=== PATIENT | male | born 1940 | race African-American/Black ===

== ENCOUNTER 2017-06-03 14:06 | Inpatient (IN) | payer OTHER ==
--- NOTE | 2017-06-03 14:26 | PDOC ---
History of Present Illness - General History Source: Patient Exam Limitations: No Limitations - History of Present Illness Initial Comments: 06/03/17 15:10 The patient is a 76 year old male, with significant past medical history of silicosis, HTN, and HLD, who presents to the emergency room complaining of 1 week of SOB, chest discomfort, bilateral leg swelling, and abdominal bloating. He describes the chest discomfort as midsternal and nonradiating. He notes that he saw his PCP, Dr. Remy Schulz, on Monday 5 days ago and was prescribed 40mg of Lasix per day. He states that he has been compliant with the lasix, but has not had any relief of the SOB, chest discomfort or leg swelling. He does not that he has been urinating more often since starting the lasix. He reports a productive cough with brown sputum, but states that this is normal for him given his history of silicosis. He notes that he sleeps on a recliner at home because he cannot lay flat. Denies palpitations. Denies any numbness and tingling of the extremities. Denies fever, chills, nausea, vomiting. Denies abdominal pain. PCP: Dr. Remy Schulz <Zainab Edwards - Last Filed: 06/03/17 16:05> <Kanika Marti - Last Filed: 06/03/17 16:14> - General Chief Complaint: Chest Pain Stated Complaint: CHEST PAIN Time Seen by Provider: 06/03/17 14:26 Past History <Zainab Edwards - Last Filed: 06/03/17 16:05> - Past Medical History HTN: Yes Hypercholesterolemia: Yes - Psycho/Social/Smoking Cessation Hx Suicidal Ideation: No Smoking History: Never smoked Information on smoking cessation initiated: No <Kanika Marti - Last Filed: 06/03/17 16:14> - Past Medical History Allergies/Adverse Reactions: Allergies Allergy/AdvReac Type Severity Reaction Status Date / Time No Known Allergies Allergy Verified 06/03/17 14:10 Home Medications: Ambulatory Orders Alfuzosin HCl [Uroxatral] 10 mg PO DAILY 06/03/17 Amlodipine Besylate 5 mg PO DAILY 06/03/17 Aspirin [ASA -] 81 mg PO DAILY 06/03/17 Ezetimibe 10 mg PO DAILY 06/03/17 Losartan Potassium 100 mg PO DAILY 06/03/17 Meloxicam [Mobic] 15 mg PO DAILY 06/03/17 Solifenacin Succinate [Vesicare -] 5 mg PO DAILY 06/03/17 Review of Systems - Review of Systems Able to Perform ROS?: Yes Comments:: 06/03/17 15:10 GENERAL/CONSTITUTIONAL: No fever or chills. No weakness. HEAD, EYES, EARS, NOSE AND THROAT: No change in vision. No ear pain or discharge. No sore throat. GASTROINTESTINAL: +abdominal bloating. No nausea, vomiting, diarrhea or constipation. GENITOURINARY: +frequent urination. No dysuria, or change in urination. CARDIOVASCULAR: +chest discomfort, SOB. RESPIRATORY: No cough, wheezing, or hemoptysis. MUSCULOSKELETAL: +Lower extremity swelling bilaterally. No joint or muscle swelling or pain. No neck or back pain. SKIN: No rash NEUROLOGIC: No headache, vertigo, loss of consciousness, or change in strength/ sensation. ENDOCRINE: No increased thirst. No abnormal weight change. HEMATOLOGIC/LYMPHATIC: No anemia, easy bleeding, or history of blood clots. ALLERGIC/IMMUNOLOGIC: No hives or skin allergy. <JerryZainab - Last Filed: 06/03/17 16:05> *Physical Exam - Vital Signs Last Vital Signs Temp Pulse Resp BP Pulse Ox 97.5 F L 124 H 18 140/96 100 06/03/17 14:07 06/03/17 14:07 06/03/17 14:07 06/03/17 14:07 06/03/17 14:20 - Physical Exam Comments: 06/03/17 15:10 Constitutional: Awake, alert, oriented. No acute distress. Head: Normocephalic. Atraumatic Eyes: PERRL. EOMI. Conjunctivae are not pale. ENT: Mucous membranes are moist and intact. Posterior pharynx without exudates or erythema. Uvula midline. Neck: Supple. Full ROM. No lymphadenopathy. Cardiovascular: +tachycardic. Regular rhythm. S1, S2 regular. Distal pulses are 2+ and symmetric. Pulmonary/Chest: Diminished lung sounds at the bases. No evidence of respiratory distress. Clear to auscultation bilaterally No wheezing, rales or rhonchi. Abdominal: Soft and non-distended. There is no tenderness. No rebound, guarding or rigidity. No organomegaly. No palpable masses. Good bowel sounds. Back: No CVA tenderness. Musculoskeletal: 2+ pitting edema bilaterally. No cyanosis. No clubbing. Full range of motion in all extremities. Nocalf tenderness. Radial/pedal pulses are intact and 2+ bilaterally Skin: Skin is warm and dry. No petechiae. No purpura. Neurological: Alert and oriented to person, place, and time. Cranial nerves II -XII are grossly intact. Normal speech. Strength is grossly symmetric. No sensory deficits. Psychiatric: Good eye contact. Normal interaction, affect and behavior. <Zainab Edwards - Last Filed: 06/03/17 16:05> - Vital Signs Last Vital Signs Temp Pulse Resp BP Pulse Ox 97.5 F L 124 H 18 140/96 99 06/03/17 14:07 06/03/17 14:07 06/03/17 14:07 06/03/17 14:07 06/03/17 14:07 <Kanika Marti - Last Filed: 06/03/17 16:14> Heart Score/ECG Review - History History: Highly suspicious - Electrocardiogram EKG: Non specific repolarization disturbance - Age Age: >/= 65 - Risk Factors Risk Factors Heart Score: Yes Hx Hypertension Based on the list above the patient has:: 1-2 risk factors - Troponin Troponin: 1-3x normal limit - Score Heart Score - Total: 7 - ECG Intrepretation Comment:: 06/03/17 15:33 aflutter at 123, q waves anteriorly, t wave flattening laterally, abnl ekg 06/03/17 16:14 repeat ekg: aflutter at 91, poor r wave progression, no acute st/t wave findings <Kanika Marti - Last Filed: 06/03/17 16:14> ED Treatment Course - LABORATORY CBC & Chemistry Diagram: 06/03/17 14:40 06/03/17 14:40 - ADDITIONAL ORDERS Additional order review: 06/03/17 14:40 RBC 5.53 MCV 78.4 L MCHC 31.6 L RDW 13.9 MPV 9.1 Neutrophils % 62.7 Lymphocytes % 17.6 Monocytes % 17.5 H Eosinophils % 1.5 Basophils % 0.7 <Zainab Edwards - Last Filed: 06/03/17 16:05> - LABORATORY CBC & Chemistry Diagram: 06/03/17 14:40 06/03/17 14:40 <Kanika Marti - Last Filed: 06/03/17 16:14> Medical Decision Making - Medical Decision Making 06/03/17 15:30 Dr. Martins was paged via paging service at 3:30pm. awaiting call back. 06/03/17 15:52 Dr. Martins called back and spoke with Dr. Marti regarding the patient's care 06/03/17 16:03 Dr. Patel was paged via paging service at 3:55pm. Dr. Cadet is owner oral surgeon awaiting call back. Dr. Cadet called back at 4:05pm and agreed to consult. 06/03/17 16:05 <Zainab Edwards - Last Filed: 06/03/17 16:05> - Critical Care Time Total Critical Care Time (minutes): 30 Critical Care Statement: The care of this patient involved high complexity decision making to prevent further life threatening deterioration of the patient 's condition and/or to evaluate & treat vital organ system(s) failure or risk of failure. - Medical Decision Making 06/03/17 15:35 a/p: pt with new onset aflutter. intermittent cp/sob -concern for chf, le edema, not improving with outpt lasix -will do rate control -lasix for fluid overload -labs -asa -cxr -ekg -trop/bnp -admission 06/03/17 15:36 pt with mildly elevated trop. hr now 86-90 after cardizem dose 06/03/17 16:13 case discussed with cardio - will eval pt. recommends lovenox therapy. will start in the ED. recommends BID dosing <Kanika Marti - Last Filed: 06/03/17 16:14> *DC/Admit/Observation/Transfer - Attestations Scribe Attestion: 06/03/17 15:10 Documentation prepared by LESLIE Martin, acting as medical assistant internal medicine for Kanika Marti DO. <Zainab Edwards - Last Filed: 06/03/17 16:05> - Discharge Dispostion Admit: Yes - Attestations Physician Attestion: 06/03/17 15:54 I, Dr. Kanika Marti, DO, attest that this document has been prepared under my direction and personally reviewed by me in its entirety. I further attest, that it accurately reflects all work, treatment, procedures and medical decision -making performed by me. <Kanika Marti - Last Filed: 06/03/17 16:14> Diagnosis at time of Disposition: Atrial flutter, Elevated troponin - Discharge Dispostion Condition at time of disposition: Guarded - Referrals Referrals: Remy Schulz MD [Primary Care Provider] -
[2017-06-03 14:55] LABS: BASOPHIL 0.7 % (0-2.0); EOSINOPHIL 1.5 % (0-4.5); MCH 24.8 pg (25.7-33.7); MCHC 31.6 g/dl (32.0-35.9); MEAN CELL VOLUME 78.4 fl (80-96); MEAN PLT VOLUME 9.1 fl (7.5-11.1); NEUTROPHILS 62.7 % (42.8-82.8); PLATELET COUNT 159 K/MM3 (134-434); RDW 13.9 % (11.9-15.9); WHITE BLOOD COUNT 6.4 K/mm3 (4.0-10.0)
[2017-06-03] MEDS ORDERED: dilTIAZem HCL 50 MG/10 ML - 10 ML VIAL IVPUSH ONE (14:58)
[2017-06-03] MEDS ORDERED: dilTIAZem HCL 125 MG/25 ML - 25 ML VIAL ONE (15:07)
[2017-06-03 15:12] LABS: ALBUMIN 3.5 g/dl (3.4-5.0); ANION GAP 8 (8-16); BILIRUBIN,TOTAL 1.5 mg/dL (0.2-1.0); CALCIUM 8.9 mg/dL (8.5-10.1); CO2 24 mmol/L (21-32); CREATININE 1.2 mg/dL (0.7-1.3); GLUCOSE,RANDOM 98 mg/dL (74-106); MAGNESIUM 2.3 mg/dL (1.8-2.4); SGOT/AST 96 U/L (15-37); SGPT/ALT 84 U/L (12-78)
[2017-06-03 15:15] LABS: ALK PHOS 80 U/L (45-117); CPK 636 IU/L (39-308); TROPONIN I 0.07 ng/ml (0.00-0.05)
[2017-06-03] MEDS ORDERED: FUROSEMIDE 40 MG/4 ML INJECTABLE VIAL ONE (15:24)
[2017-06-03] MEDS ORDERED: ASPIRIN 81 MG CHEWABLE TABLETS PO ONE (15:25)
[2017-06-03] MEDS ORDERED: FUROSEMIDE 40 MG/4 ML INJECTABLE VIAL IVPUSH ONE (15:25)
[2017-06-03] MEDS ORDERED: ASPIRIN 81 MG CHEWABLE TABLETS ONE (15:28)
[2017-06-03 15:32] LABS: INR 1.58 (0.82-1.09); PROTHROMBIN TIME (PATIENT) 17.5 SEC (9.98-11.88)
[2017-06-03 15:35] LABS: ACTIVATED PTT 31.7 SECONDS (26.9-34.4)
[2017-06-03] MEDS ORDERED: dilTIAZem HCL 30 MG TABLET (FP) ONE (16:00)
[2017-06-03] MEDS ORDERED: dilTIAZem HCL 30 MG TABLET (FP) PO ONE (16:02)
[2017-06-03] MEDS ORDERED: ENOXAPARIN NA (PORCINE) 40 MG/0.4 ML DISP.SYRIN SQ ONE (16:03)
--- NOTE | 2017-06-03 16:03 | CON.CARD ---
Consult Consult Specialty:: Cardiology for dr. Patel Reason for Consultation:: af chf - History of Present Illness History of Present Illness: The patient is a 76 year old male, with significant past medical history of silicosis, HTN, and HLD, who presents to the emergency room complaining of 1 week of SOB, chest discomfort, bilateral leg swelling, and abdominal bloating. He describes the chest discomfort as midsternal and nonradiating. He notes that he saw his PCP, Dr. Remy Schulz, on Monday 5 days ago and was prescribed 40mg of Lasix per day. He states that he has been compliant with the lasix, but has not had any relief of the SOB, chest discomfort or leg swelling. He does not that he has been urinating more often since starting the lasix. He reports a productive cough with brown sputum, but states that this is normal for him given his history of silicosis. He notes that he sleeps on a recliner at home because he cannot lay flat. - History Source History Provided By: Patient, Medical Record - Past Medical History Cardio/Vascular: Yes: CHF, HTN, Hyperlipdemia - Smoking History Smoking history: Never smoked Home Medications - Allergies Allergies/Adverse Reactions: Allergies Allergy/AdvReac Type Severity Reaction Status Date / Time No Known Allergies Allergy Verified 06/03/17 14:10 - Home Medications Home Medications: Ambulatory Orders Alfuzosin HCl [Uroxatral] 10 mg PO DAILY 06/03/17 Amlodipine Besylate 5 mg PO DAILY 06/03/17 Aspirin [ASA -] 81 mg PO DAILY 06/03/17 Ezetimibe 10 mg PO DAILY 06/03/17 Losartan Potassium 100 mg PO DAILY 06/03/17 Meloxicam [Mobic] 15 mg PO DAILY 06/03/17 Solifenacin Succinate [Vesicare -] 5 mg PO DAILY 06/03/17 Review of Systems - Review of Systems Constitutional: reports: No Symptoms Eyes: reports: No Symptoms HENT: reports: No Symptoms Neck: reports: No Symptoms Cardiovascular: reports: Chest Pain Gastrointestinal: reports: No Symptoms Genitourinary: reports: No Symptoms Breasts: reports: No Symptoms Reported Musculoskeletal: reports: No Symptoms Integumentary: reports: No Symptoms Neurological: reports: No Symptoms Endocrine: reports: No Symptoms Hematology/Lymphatic: reports: No Symptoms Psychiatric: reports: No Symptoms Vital Signs: Vital Signs Temperature 97.5 F L 06/03/17 14:07 Pulse Rate 98 H 06/03/17 15:56 Respiratory Rate 19 06/03/17 15:56 Blood Pressure 139/105 06/03/17 15:56 O2 Sat by Pulse Oximetry (%) 100 06/03/17 15:56 Constitutional: Yes: Well Nourished, No Distress, Calm Eyes: Yes: WNL, Conjunctiva Clear, EOM Intact HENT: Yes: WNL, Atraumatic, Normocephalic Neck: Yes: WNL, Supple, Trachea Midline Respiratory: Yes: WNL, Regular, CTA Bilaterally Gastrointestinal: Yes: WNL, Normal Bowel Sounds Renal/: Yes: WNL Cardiovascular: Yes: WNL, Pulse Irregular Musculoskeletal: Yes: WNL Extremities: Yes: WNL Edema: Yes Edema: LLE: 2+, RLE: 2+ Integumentary: Yes: WNL Neurological: Yes: WNL, Alert, Oriented ...Motor Strength: WNL Psychiatric: Yes: WNL, Alert, Oriented - Other Data Labs, Other Data: CBC, BMP 06/03/17 14:40 06/03/17 14:40 Troponin, BNP 06/03/17 06/03/17 14:40 15:00 Troponin I 0.07 H B-Natriuretic Peptide 1578.51 H Troponin, BNP 06/03/17 06/03/17 14:40 15:00 Troponin I 0.07 H B-Natriuretic Peptide 1578.51 H Imaging - Results Chest X-ray: Image Reviewed (cm no i/e) EKG: Image Reviewed (a flutter rep abn, poor r wave progression) Problem List - Problems (1) Atrial flutter Code(s): I48.92 - UNSPECIFIED ATRIAL FLUTTER (2) Elevated troponin Code(s): R74.8 - ABNORMAL LEVELS OF OTHER SERUM ENZYMES Assessment/Plan new onset a flutter new onset chf atypical cp right sided /sob/elevated tni/s htn hlp plan rate control with cardizem echo ac with lovenox 1 mg/kg bid ? r/o PE
[2017-06-03] MEDS ORDERED: ENOXAPARIN NA (PORCINE) 100 MG/1 ML DISP.SYRIN SQ ONE (16:45)
[2017-06-03] MEDS: dilTIAZem HCL 60 MG TABLET (FP) PO SCH (19:42)
[2017-06-03 20:17] VITALS: BMI 30.2
[2017-06-03 21:08] LABS: TROPONIN I 0.08 ng/ml (0.00-0.05)
--- NOTE | 2017-06-03 21:20 | HP ---
Admitting History and Physical - Admission History of Present Illness: Pt is a 76 y/o male w/ PMH significant for HTN and HLD. Pt initially presented to the ER bc of increased pedal edema for at least 1 week now although he states that it has been going on for longer. Pt also saw his PMD few days prior to this. Upon further questioning pt did admit to chest pain wc was nonradiating and associated w/ SOB however pt denies any palpitations. In the EAR pt found to be in aflutter w/ HR of 130 and was given IV cardizem. Pt also found to have elevated BNP of >1500 and slightly elevated troponin. History Source: Patient, Medical Record - Past Medical History Cardiovascular: Yes: HTN, Hyperlipdemia - Smoking History Smoking history: Never smoked Home Medications - Allergies Allergies/Adverse Reactions: Allergies Allergy/AdvReac Type Severity Reaction Status Date / Time No Known Allergies Allergy Verified 06/03/17 14:10 - Home Medications Home Medications: Ambulatory Orders Alfuzosin HCl [Uroxatral] 10 mg PO DAILY 06/03/17 Amlodipine Besylate 5 mg PO DAILY 06/03/17 Aspirin [ASA -] 81 mg PO DAILY 06/03/17 Ezetimibe 10 mg PO DAILY 06/03/17 Losartan Potassium 100 mg PO DAILY 06/03/17 Meloxicam [Mobic] 15 mg PO DAILY 06/03/17 Solifenacin Succinate [Vesicare -] 5 mg PO DAILY 06/03/17 Family Disease History - Family Disease History Family History: Unremarkable Review of Systems - Review of Systems Constitutional: reports: No Symptoms Eyes: reports: No Symptoms HENT: reports: No Symptoms Neck: reports: No Symptoms Cardiovascular: reports: No Symptoms Respiratory: reports: No Symptoms Gastrointestinal: reports: Other (Abdominal discomfort (-) N/V (-) diarrhea/ constipation) Physical Examination Vital Signs: Vital Signs Temperature 98.4 F 06/03/17 19:39 Pulse Rate 120 H 06/03/17 19:39 Respiratory Rate 20 06/03/17 19:39 Blood Pressure 145/90 06/03/17 19:39 O2 Sat by Pulse Oximetry (%) 99 06/03/17 19:40 Constitutional: Yes: Well Nourished Eyes: Yes: WNL HENT: Yes: WNL Neck: Yes: WNL, Supple Cardiovascular: Yes: Tachycardia Respiratory: Yes: WNL, Regular, CTA Bilaterally Gastrointestinal: Yes: Normal Bowel Sounds, Soft, Abdomen, Obese, Distention Musculoskeletal: Yes: WNL Edema: Yes Edema: LLE: 2+, RLE: 2+ Neurological: Yes: WNL, Alert, Oriented ...Motor Strength: WNL Problem List - Problems (1) Atrial flutter Assessment/Plan: Pt admitted to tele Cardio consult Cont cardizem/lovenox Serial cpk/troponin Check echo Code(s): I48.92 - UNSPECIFIED ATRIAL FLUTTER (2) Elevated troponin Assessment/Plan: Serial cpk/troponin to r/o ACS Cont asa As per cardio Code(s): R74.8 - ABNORMAL LEVELS OF OTHER SERUM ENZYMES (3) CHF (congestive heart failure) Assessment/Plan: Check echo to assess LV function Cont IV lasix Monitor electrolytes Code(s): I50.9 - HEART FAILURE, UNSPECIFIED (4) HTN (hypertension) Assessment/Plan: Cont losartan/asa Code(s): I10 - ESSENTIAL (PRIMARY) HYPERTENSION (5) HLD (hyperlipidemia) Assessment/Plan: Cont zetia Code(s): E78.5 - HYPERLIPIDEMIA, UNSPECIFIED (6) BPH (benign prostatic hyperplasia) Assessment/Plan: Cont flomax Code(s): N40.0 - BENIGN PROSTATIC HYPERPLASIA WITHOUT LOWER URINRY TRACT SYMP
[2017-06-03] MEDS: ENOXAPARIN NA (PORCINE) 100 MG/1 ML DISP.SYRIN SQ SCH (23:02)
[2017-06-04] MEDS: dilTIAZem HCL 60 MG TABLET (FP) PO SCH ×5 (00:03→23:56)
[2017-06-04 07:52] LABS: BASOPHIL 0.9 % (0-2.0); EOSINOPHIL 1.5 % (0-4.5); MCH 24.9 pg (25.7-33.7); MCHC 31.5 g/dl (32.0-35.9); MEAN CELL VOLUME 78.9 fl (80-96); MEAN PLT VOLUME 9.4 fl (7.5-11.1); NEUTROPHILS 57.5 % (42.8-82.8); PLATELET COUNT 159 K/MM3 (134-434); RDW 13.7 % (11.9-15.9); WHITE BLOOD COUNT 7.4 K/mm3 (4.0-10.0)
[2017-06-04 08:23] LABS: ALBUMIN 3.3 g/dl (3.4-5.0); ANION GAP 7 (8-16); CALCIUM 8.8 mg/dL (8.5-10.1); CO2 28 mmol/L (21-32); CREATININE 1.2 mg/dL (0.7-1.3); GLUCOSE,RANDOM 99 mg/dL (74-106); SGOT/AST 132 U/L (15-37); SGPT/ALT 102 U/L (12-78)
[2017-06-04 08:25] LABS: ALK PHOS 74 U/L (45-117); BILIRUBIN,TOTAL 1.7 mg/dL (0.2-1.0); CPK 380 IU/L (39-308); TOT PROT 6.7 g/dl (6.4-8.2); TROPONIN I 0.08 ng/ml (0.00-0.05)
--- NOTE | 2017-06-04 08:40 | PN ---
Progress Note, Physician History of Present Illness: The patient is a 76 year old male, with significant past medical history of silicosis, HTN, and HLD, who presents to the emergency room complaining of 1 week of SOB, chest discomfort, bilateral leg swelling, and abdominal bloating. He describes the chest discomfort as midsternal and nonradiating. He notes that he saw his PCP, Dr. Remy Schulz, on Monday 5 days ago and was prescribed 40mg of Lasix per day. He states that he has been compliant with the lasix, but has not had any relief of the SOB, chest discomfort or leg swelling. He does not that he has been urinating more often since starting the lasix. He reports a productive cough with brown sputum, but states that this is normal for him given his history of silicosis. He notes that he sleeps on a recliner at home because he cannot lay flat. - Current Medication List Current Medications: Active Medications Aspirin (Asa -) 81 mg PO DAILY [facility] Diltiazem HCl (Cardizem -) 60 mg PO Q6HPO [facility] Last Admin: 06/04/17 05:51 Dose: 60 mg Ezetimibe (Zetia -) 10 mg PO DAILY [facility] Enoxaparin Sodium (Lovenox -) 90 mg SQ BID [facility] Last Admin: 06/03/17 23:02 Dose: 90 mg Furosemide (Lasix Injection -) 20 mg IVPB DAILY [facility] Losartan Potassium (Cozaar -) 100 mg PO DAILY [facility] Non-Formulary Medication (Alfuzosin Hcl [Uroxatral]) 10 mg PO DAILY [facility] - Objective Vital Signs: Vital Signs Temperature 96.8 F L 06/04/17 05:46 Pulse Rate 66 06/04/17 05:46 Respiratory Rate 20 06/04/17 05:46 Blood Pressure 134/97 06/04/17 05:46 O2 Sat by Pulse Oximetry (%) 99 06/03/17 19:40 Eyes: Yes: WNL, Conjunctiva Clear, EOM Intact HENT: Yes: WNL, Atraumatic, Normocephalic Neck: Yes: WNL, Supple, Trachea Midline Cardiovascular: Yes: WNL, Pulse Irregular, S1, S2 Respiratory: Yes: WNL, Regular, CTA Bilaterally Gastrointestinal: Yes: WNL, Normal Bowel Sounds Genitourinary: Yes: WNL Musculoskeletal: Yes: WNL Extremities: Yes: WNL Edema: No Integumentary: Yes: WNL Neurological: Yes: WNL, Alert, Oriented ...Motor Strength: WNL Psychiatric: Yes: WNL Labs: CBC, BMP 06/04/17 05:45 06/04/17 05:45 INR, PTT INR 1.58 (0.82-1.09) H 06/03/17 15:00 Laboratory Tests 06/03/17 06/03/17 06/03/17 14:40 14:40 15:00 WBC 6.4 RBC 5.53 Hgb 13.7 Hct 43.3 MCV 78.4 L MCH 24.8 L MCHC 31.6 L RDW 13.9 Plt Count 159 MPV 9.1 Neutrophils % 62.7 Lymphocytes % 17.6 Monocytes % 17.5 H Eosinophils % 1.5 Basophils % 0.7 PT with INR 17.50 H INR 1.58 H PTT (Actin FS) 31.7 Sodium 143 Potassium 3.8 Chloride 111 H Carbon Dioxide 24 Anion Gap 8 BUN 23 H Creatinine 1.2 Creat Clearance w eGFR 59.02 Random Glucose 98 Calcium 8.9 Magnesium 2.3 Total Bilirubin 1.5 H AST 96 H ALT 84 H Alkaline Phosphatase 80 Creatine Kinase 636 H Creatine Kinase Index 1.6 CK-MB (CK-2) 10.683 H Troponin I 0.07 H B-Natriuretic Peptide Total Protein 7.0 Albumin 3.5 Total LDL Cholesterol 06/03/17 06/03/17 06/04/17 15:00 20:30 05:45 WBC 7.4 RBC 5.50 Hgb 13.7 Hct 43.4 MCV 78.9 L MCH 24.9 L MCHC 31.5 L RDW 13.7 Plt Count 159 MPV 9.4 Neutrophils % 57.5 Lymphocytes % 23.0 D Monocytes % 17.1 H Eosinophils % 1.5 Basophils % 0.9 PT with INR INR PTT (Actin FS) Sodium Potassium Chloride Carbon Dioxide Anion Gap BUN Creatinine Creat Clearance w eGFR Random Glucose Calcium Magnesium Total Bilirubin AST ALT Alkaline Phosphatase Creatine Kinase 489 H Creatine Kinase Index 1.6 CK-MB (CK-2) 8.253 H Troponin I 0.08 H B-Natriuretic Peptide 1578.51 H Total Protein Albumin Total LDL Cholesterol 06/04/17 05:45 WBC RBC Hgb Hct MCV MCH MCHC RDW Plt Count MPV Neutrophils % Lymphocytes % Monocytes % Eosinophils % Basophils % PT with INR INR PTT (Actin FS) Sodium 142 Potassium 3.9 Chloride 107 Carbon Dioxide 28 Anion Gap 7 L BUN 24 H Creatinine 1.2 Creat Clearance w eGFR 59.02 Random Glucose 99 Calcium 8.8 Magnesium Total Bilirubin 1.7 H AST 132 H D ALT 102 H D Alkaline Phosphatase 74 Creatine Kinase 380 H Creatine Kinase Index CK-MB (CK-2) Troponin I 0.08 H B-Natriuretic Peptide Total Protein 6.7 Albumin 3.3 L Total LDL Cholesterol 54 Problem List - Problems (1) Atrial flutter Code(s): I48.92 - UNSPECIFIED ATRIAL FLUTTER (2) Elevated troponin Code(s): R74.8 - ABNORMAL LEVELS OF OTHER SERUM ENZYMES Assessment/Plan new onset a flutter new onset chf atypical cp right sided /sob/elevated tni/s htn hlp plan rate control with cardizem echo ac with lovenox 1 mg/kg bid ? r/o PE will order ct
[2017-06-04] MEDS: LOSARTAN POTASSIUM 50 MG TABLET (FP) PO SCH (09:11)
[2017-06-04] MEDS: ASPIRIN 81 MG CHEWABLE TABLETS PO SCH (09:11)
[2017-06-04] MEDS: EZETIMIBE 10 MG TABLET (FP) PO SCH (09:11)
[2017-06-04] MEDS: ENOXAPARIN NA (PORCINE) 100 MG/1 ML DISP.SYRIN SQ SCH ×2 (09:12→21:15)
[2017-06-04] MEDS: FUROSEMIDE 40 MG/4 ML INJECTABLE VIAL IVPB SCH (09:12)
[2017-06-04] MEDS ORDERED: PT OWN MED DRAWER 7, Y5N ONE (09:29)
[2017-06-04] MEDS ORDERED: amLODIPine BESYLATE 5 MG TABLET (FP) PO SCH (10:00)
[2017-06-04] MEDS ORDERED: PATIENT'S OWN MEDICATION (NON-FORMULARY) (Alfuzosin Hcl [Uroxatral] 10 MG) PO SCH (10:00)
[2017-06-04] MEDS: TAMSULOSIN HCL 0.4 MG CAP.ER.24H (FP) PO SCH (10:47)
[2017-06-04] MEDS: DOCUSATE SODIUM 100 MG CAPSULE (FP) PO SCH ×3 (10:47→21:16)
[2017-06-04] MEDS ORDERED: FLU VACCINE QUAD 60 MCG/0.5 ML (MDV 17-18) IM ONE (12:00)
[2017-06-04 15:21] LABS: CHOLESTEROL 91 mg/dl
--- NOTE | 2017-06-04 15:39 | CON.GI ---
Consult Consult Specialty:: GI Referred by:: Dr Martins Reason for Consultation:: Abnormal LFTs - History of Present Illness Chief Complaint: LE edema and dyspnea History of Present Illness: 76 M with h/o HTN, silicosis, HLD, admitted with 1 week of dyspnea, chest discomfort and cough. He has also been experiencing LE edema. He was given lasix as an opt which did not help. Called for increased LFTs - History Source History Provided By: Patient, Medical Record Limitations to Obtaining History: No Limitations - Past Medical History Cardio/Vascular: Yes: CHF, HTN, Hyperlipdemia - Smoking History Smoking history: Never smoked Home Medications - Allergies Allergies/Adverse Reactions: Allergies Allergy/AdvReac Type Severity Reaction Status Date / Time No Known Allergies Allergy Verified 06/03/17 14:10 - Home Medications Home Medications: Ambulatory Orders Alfuzosin HCl [Uroxatral] 10 mg PO DAILY 06/03/17 Amlodipine Besylate 5 mg PO DAILY 06/03/17 Aspirin [ASA -] 81 mg PO DAILY 06/03/17 Ezetimibe 10 mg PO DAILY 06/03/17 Losartan Potassium 100 mg PO DAILY 06/03/17 Meloxicam [Mobic] 15 mg PO DAILY 06/03/17 Solifenacin Succinate [Vesicare -] 5 mg PO DAILY 06/03/17 Physical Exam-GI Vital Signs: Vital Signs Temperature 98.2 F 06/04/17 14:30 Pulse Rate 120 H 06/04/17 14:30 Respiratory Rate 20 06/04/17 14:30 Blood Pressure 144/95 06/04/17 14:30 O2 Sat by Pulse Oximetry (%) 96 06/04/17 10:00 Labs: CBC, BMP 06/04/17 05:45 06/04/17 05:45 INR, PTT INR 1.58 (0.82-1.09) H 06/03/17 15:00 Imaging - Results Ultrasound: Report Reviewed (Large liver) Assessment/Plan Patient with increased LFTs trending up -Possible pre-existing problem-will check for chronic liverand hep B/C -U/S shows hepatomegaly-no description of spleen Rec CT abdomen Check fibrosure Possibly secondary to hepatic congestion secondary to R heart failure Rec Echo to better evaluate
[2017-06-04] MEDS ORDERED: INSULIN (NOVOLOG) ASPART 100 UNITS/ML 10ML VIAL ONE (17:18)
[2017-06-04 17:55] LABS: TROPONIN I 0.08 ng/ml (0.00-0.05)
--- NOTE | 2017-06-04 23:07 | PN ---
Progress Note, Physician History of Present Illness: Pt now states that he has noticed some abdominal discomfort - Current Medication List Current Medications: Active Medications Aspirin (Asa -) 81 mg PO DAILY [facility] Last Admin: 06/04/17 09:11 Dose: 81 mg Diltiazem HCl (Cardizem -) 60 mg PO Q6HPO [facility] Last Admin: 06/04/17 17:03 Dose: 60 mg Docusate Sodium (Colace -) 100 mg PO TID [facility] Last Admin: 06/04/17 21:16 Dose: 100 mg Ezetimibe (Zetia -) 10 mg PO DAILY [facility] Last Admin: 06/04/17 09:11 Dose: 10 mg Enoxaparin Sodium (Lovenox -) 90 mg SQ BID [facility] Last Admin: 06/04/17 21:15 Dose: 90 mg Furosemide (Lasix Injection -) 20 mg IVPB DAILY [facility] Last Admin: 06/04/17 09:12 Dose: 20 mg Losartan Potassium (Cozaar -) 100 mg PO DAILY [facility] Last Admin: 06/04/17 09:11 Dose: 100 mg Tamsulosin HCl (Flomax -) 0.4 mg PO DAILY@0830 [facility] Last Admin: 06/04/17 10:47 Dose: 0.4 mg - Objective Vital Signs: Vital Signs Temperature 98.1 F 06/04/17 21:14 Pulse Rate 84 06/04/17 21:14 Respiratory Rate 20 06/04/17 21:14 Blood Pressure 160/98 06/04/17 21:14 O2 Sat by Pulse Oximetry (%) 97 06/04/17 20:26 Constitutional: Yes: Well Nourished HENT: Yes: WNL Neck: Yes: WNL, Supple Cardiovascular: Yes: WNL, Regular Rate and Rhythm Respiratory: Yes: WNL, Regular, CTA Bilaterally Gastrointestinal: Yes: Normal Bowel Sounds, Soft, Distention Edema: LLE: 1+, RLE: 1+ Labs: CBC, BMP 06/04/17 05:45 06/04/17 05:45 INR, PTT INR 1.58 (0.82-1.09) H 06/03/17 15:00 Problem List - Problems (1) Elevated LFTs Assessment/Plan: US abd showed pleural effusion and trace ascites ? Hepatic congestion Cont to monitor labs Check ct scan abd/pelvis Code(s): R79.89 - OTHER SPECIFIED ABNORMAL FINDINGS OF BLOOD CHEMISTRY (2) Atrial flutter Assessment/Plan: Heart rate better controlled Cont cardizem/lovenox Echo pending Code(s): I48.92 - UNSPECIFIED ATRIAL FLUTTER (3) Elevated troponin Assessment/Plan: Repeat troponin in am Cont asa As per cardio Code(s): R74.8 - ABNORMAL LEVELS OF OTHER SERUM ENZYMES (4) CHF (congestive heart failure) Assessment/Plan: Echo pending to assess LV function Cont IV lasix Monitor electrolytes Code(s): I50.9 - HEART FAILURE, UNSPECIFIED (5) HTN (hypertension) Assessment/Plan: Cont losartan/asa Code(s): I10 - ESSENTIAL (PRIMARY) HYPERTENSION (6) HLD (hyperlipidemia) Assessment/Plan: Cont zetia Code(s): E78.5 - HYPERLIPIDEMIA, UNSPECIFIED (7) BPH (benign prostatic hyperplasia) Assessment/Plan: Cont flomax Code(s): N40.0 - BENIGN PROSTATIC HYPERPLASIA WITHOUT LOWER URINRY TRACT SYMP
[2017-06-05] MEDS: dilTIAZem HCL 60 MG TABLET (FP) PO SCH ×3 (06:14→17:20)
[2017-06-05] MEDS: DOCUSATE SODIUM 100 MG CAPSULE (FP) PO SCH ×3 (06:14→21:51)
[2017-06-05 07:19] LABS: BASOPHIL 0.8 % (0-2.0); EOSINOPHIL 1.5 % (0-4.5); MCH 24.6 pg (25.7-33.7); MCHC 31.5 g/dl (32.0-35.9); MEAN CELL VOLUME 78.1 fl (80-96); MEAN PLT VOLUME 9.3 fl (7.5-11.1); NEUTROPHILS 64.3 % (42.8-82.8); PLATELET COUNT 169 K/MM3 (134-434); RDW 14.2 % (11.9-15.9); WHITE BLOOD COUNT 8.5 K/mm3 (4.0-10.0)
[2017-06-05 08:09] LABS: ALBUMIN 3.4 g/dl (3.4-5.0); ALK PHOS 83 U/L (45-117); ANION GAP 12 (8-16); CO2 25 mmol/L (21-32); CPK 351 IU/L (39-308); CREATININE 1.3 mg/dL (0.7-1.3); GLUCOSE,RANDOM 149 mg/dL (74-106); SGOT/AST 155 U/L (15-37); SGPT/ALT 128 U/L (12-78); TOT PROT 6.8 g/dl (6.4-8.2); TROPONIN I 0.08 ng/ml (0.00-0.05)
[2017-06-05] MEDS: TAMSULOSIN HCL 0.4 MG CAP.ER.24H (FP) PO SCH (08:16)
[2017-06-05] MEDS: LOSARTAN POTASSIUM 50 MG TABLET (FP) PO SCH (09:17)
[2017-06-05] MEDS: ENOXAPARIN NA (PORCINE) 100 MG/1 ML DISP.SYRIN SQ SCH ×2 (09:18→21:52)
[2017-06-05] MEDS: ASPIRIN 81 MG CHEWABLE TABLETS PO SCH (09:18)
[2017-06-05] MEDS: EZETIMIBE 10 MG TABLET (FP) PO SCH (09:18)
[2017-06-05] MEDS: FUROSEMIDE 40 MG/4 ML INJECTABLE VIAL IVPB SCH (09:18)
--- NOTE | 2017-06-05 10:33 | PN ---
Progress Note, Physician History of Present Illness: seen and examined today in [facility]. states he is feeling better today. no overnight events. no new complaints. - Current Medication List Current Medications: Active Medications Aspirin (Asa -) 81 mg PO DAILY [facility] Last Admin: 06/05/17 09:18 Dose: 81 mg Diltiazem HCl (Cardizem -) 60 mg PO Q6HPO [facility] Last Admin: 06/05/17 06:14 Dose: 60 mg Docusate Sodium (Colace -) 100 mg PO TID [facility] Last Admin: 06/05/17 06:14 Dose: 100 mg Ezetimibe (Zetia -) 10 mg PO DAILY [facility] Last Admin: 06/05/17 09:18 Dose: 10 mg Enoxaparin Sodium (Lovenox -) 90 mg SQ BID [facility] Last Admin: 06/05/17 09:18 Dose: 90 mg Furosemide (Lasix Injection -) 20 mg IVPB DAILY [facility] Last Admin: 06/05/17 09:18 Dose: 20 mg Losartan Potassium (Cozaar -) 100 mg PO DAILY [facility] Last Admin: 06/05/17 09:17 Dose: 100 mg Tamsulosin HCl (Flomax -) 0.4 mg PO DAILY@0830 [facility] Last Admin: 06/05/17 08:16 Dose: 0.4 mg - Objective Vital Signs: Vital Signs Temperature 98.2 F 06/05/17 08:10 Pulse Rate 114 H 06/05/17 08:10 Respiratory Rate 16 06/05/17 08:10 Blood Pressure 116/62 06/05/17 08:10 O2 Sat by Pulse Oximetry (%) 97 06/04/17 20:26 Constitutional: Yes: Well Nourished, No Distress, Calm Eyes: Yes: WNL, Conjunctiva Clear, EOM Intact, PERRL HENT: Yes: WNL, Atraumatic, Normocephalic Neck: Yes: WNL, Supple, Trachea Midline Cardiovascular: Yes: Pulse Irregular, S1, S2. No: Bradycardia, Tachycardia, Bruit, JVD, Gallop, Murmur, Rub, S3, S4, Varicosities Respiratory: Yes: Regular, Diminished, Rhonchi. No: On Nasal O2, Rales, SOB, Wheezes Gastrointestinal: Yes: Normal Bowel Sounds, Soft. No: Distention, Tenderness Extremities: Yes: WNL Edema: Yes Edema: LLE: Trace, RLE: Trace Peripheral Pulses WNL: Yes Peripheral Pulses: Left Doralis Pedis: 2+, Right Dorsalis Pedis: 2+ Integumentary: Yes: WNL Neurological: Yes: Alert, Oriented Psychiatric: Yes: Alert, Oriented Labs: CBC, BMP 06/05/17 05:35 06/05/17 05:35 INR, PTT INR 1.58 (0.82-1.09) H 06/03/17 15:00 - ....Imaging Chest X-ray: Report Reviewed, Image Reviewed EKG: Report Reviewed, Image Reviewed Other: Report Reviewed, Image Reviewed (tele-Aflutter, HR currently controlled, episodes of RVR) Assessment/Plan 76 year old man with a history of HTN, HLD, silicosis, chronic dyspnea on exertion, abnormal nuclear stress test 2013 after which he refused any additional work up (CTA coronaries was recommended at the time); now admitted with a 1 week history of worsening sob, chest discomfort, abdominal bloating, and b/l LE edema and noted to have newly diagnosed atrial flutter and a slightly elevated troponin. Atrial flutter-newly diagnosed, HR is currently adequately controlled but episodes of RVR during admission -cont cardizem at current dose for now -cont full dose Lovenox for now, will decide on oral AC prior to discharge -cont tele for now Elevated troponin-mildly elevated, likely secondary to demand ischemia and CHF -however pt had an abnormal nuclear stress test as above in 2013 and refused any further work up after that -f/up echo from today -would likely benefit from additional ischemic work up, would recommend cardiac cath at this point, will discuss with patient, if he refuses will consider a nuclear stress test -cont ASA and zetia -will clarify why not on statin -cont HR control as above SOB/edema-CHF, h/o silicosis, 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
--- NOTE | 2017-06-05 16:39 | EKG ---
Test Reason : Blood Pressure : / mmHG Vent. Rate : 123 BPM Atrial Rate : 246 BPM P-R Int : 000 ms QRS Dur : 086 ms QT Int : 360 ms P-R-T Axes : 085 124 038 degrees QTc Int : 515 ms ATRIAL FLUTTER WITH 2:1 A-V CONDUCTION WITH PREMATURE VENTRICULAR OR ABERRANTLY CONDUCTED COMPLEXES NONSPECIFIC ST AND T WAVE ABNORMALITY ABNORMAL ECG NO PREVIOUS ECGS AVAILABLE Confirmed by COOKIE WHITTEN MD ([id number]) on 06/05/2017 4:39:05 PM Referred By: Confirmed By:COOKIE WHITTEN MD
--- NOTE | 2017-06-05 16:39 | EKG ---
Test Reason : Blood Pressure : / mmHG Vent. Rate : 091 BPM Atrial Rate : 242 BPM P-R Int : 000 ms QRS Dur : 094 ms QT Int : 386 ms P-R-T Axes : 000 091 073 degrees QTc Int : 474 ms ATRIAL FLUTTER WITH VARIABLE A-V BLOCK ABNORMAL ECG WHEN COMPARED WITH ECG OF 03-JUN-2017 14:17, Confirmed by COOKIE WHITTEN MD ([id number]) on 06/05/2017 4:38:31 PM Referred By: Confirmed By:COOKIE WHITTEN MD
--- NOTE | 2017-06-05 23:22 | PN ---
Progress Note, Physician History of Present Illness: No new complaints - Current Medication List Current Medications: Active Medications Aspirin (Asa -) 81 mg PO DAILY [facility] Last Admin: 06/05/17 09:18 Dose: 81 mg Diltiazem HCl (Cardizem -) 60 mg PO Q6HPO [facility] Last Admin: 06/05/17 17:20 Dose: 60 mg Docusate Sodium (Colace -) 100 mg PO TID [facility] Last Admin: 06/05/17 21:51 Dose: 100 mg Ezetimibe (Zetia -) 10 mg PO DAILY [facility] Last Admin: 06/05/17 09:18 Dose: 10 mg Enoxaparin Sodium (Lovenox -) 90 mg SQ BID [facility] Last Admin: 06/05/17 21:52 Dose: 90 mg Furosemide (Lasix Injection -) 20 mg IVPB DAILY [facility] Last Admin: 06/05/17 09:18 Dose: 20 mg Losartan Potassium (Cozaar -) 100 mg PO DAILY [facility] Last Admin: 06/05/17 09:17 Dose: 100 mg Tamsulosin HCl (Flomax -) 0.4 mg PO DAILY@0830 [facility] Last Admin: 06/05/17 08:16 Dose: 0.4 mg - Objective Vital Signs: Vital Signs Temperature 97.3 F L 06/05/17 18:00 Pulse Rate 79 06/05/17 18:00 Respiratory Rate 18 06/05/17 18:00 Blood Pressure 142/73 06/05/17 18:00 O2 Sat by Pulse Oximetry (%) 97 06/05/17 09:00 Constitutional: Yes: No Distress HENT: Yes: WNL Neck: Yes: WNL, Supple Cardiovascular: Yes: Tachycardia Respiratory: Yes: WNL, Regular, CTA Bilaterally Gastrointestinal: Yes: WNL, Normal Bowel Sounds, Soft, Abdomen, Obese Labs: CBC, BMP 06/05/17 05:35 06/05/17 05:35 INR, PTT INR 1.58 (0.82-1.09) H 06/03/17 15:00 Problem List - Problems (1) Elevated LFTs Assessment/Plan: US abd showed pleural effusion and trace ascites LFT's still increased CT scan abd showed ascites/?advanced hepatocellular dz As per GI Code(s): R79.89 - OTHER SPECIFIED ABNORMAL FINDINGS OF BLOOD CHEMISTRY (2) Atrial flutter Assessment/Plan: Heart rate controlled Cont cardizem/lovenox Code(s): I48.92 - UNSPECIFIED ATRIAL FLUTTER (3) Elevated troponin Assessment/Plan: Repeat troponin in am Possible transfer for cardiac cath Cont asa/ovenox As per cardio Code(s): R74.8 - ABNORMAL LEVELS OF OTHER SERUM ENZYMES (4) CHF (congestive heart failure) Assessment/Plan: Cont IV lasix Monitor electrolytes Code(s): I50.9 - HEART FAILURE, UNSPECIFIED (5) HTN (hypertension) Assessment/Plan: Cont losartan/asa Code(s): I10 - ESSENTIAL (PRIMARY) HYPERTENSION (6) HLD (hyperlipidemia) Assessment/Plan: Cont zetia Code(s): E78.5 - HYPERLIPIDEMIA, UNSPECIFIED (7) BPH (benign prostatic hyperplasia) Assessment/Plan: Cont flomax Code(s): N40.0 - BENIGN PROSTATIC HYPERPLASIA WITHOUT LOWER URINRY TRACT SYMP
[2017-06-06] MEDS: dilTIAZem HCL 60 MG TABLET (FP) PO SCH ×2 (00:28→06:12)
[2017-06-06] MEDS: DOCUSATE SODIUM 100 MG CAPSULE (FP) PO SCH ×2 (06:12→14:39)
[2017-06-06 08:01] LABS: BASOPHIL 0.9 % (0-2.0); EOSINOPHIL 2.8 % (0-4.5); MCH 24.6 pg (25.7-33.7); MCHC 31.5 g/dl (32.0-35.9); MEAN CELL VOLUME 78.2 fl (80-96); MEAN PLT VOLUME 9.5 fl (7.5-11.1); NEUTROPHILS 54.6 % (42.8-82.8); PLATELET COUNT 168 K/MM3 (134-434); WHITE BLOOD COUNT 6.7 K/mm3 (4.0-10.0)
[2017-06-06 08:09] LABS: ALBUMIN 3.1 g/dl (3.4-5.0); ANION GAP 7 (8-16); CALCIUM 8.6 mg/dL (8.5-10.1); CO2 27 mmol/L (21-32); CREATININE 1.2 mg/dL (0.7-1.3); GLUCOSE,RANDOM 100 mg/dL (74-106); SGOT/AST 98 U/L (15-37); SGPT/ALT 103 U/L (12-78)
[2017-06-06 08:13] LABS: ALK PHOS 79 U/L (45-117); BILIRUBIN,TOTAL 1.6 mg/dL (0.2-1.0); TOT PROT 6.5 g/dl (6.4-8.2); TROPONIN I 0.07 ng/ml (0.00-0.05)
--- NOTE | 2017-06-06 09:18 | PN ---
Progress Note, Physician Chief Complaint: Wants to go home TELE: AF with average rate < 100bpm - Current Medication List Current Medications: Active Medications Aspirin (Asa -) 81 mg PO DAILY [facility] Last Admin: 06/05/17 09:18 Dose: 81 mg Diltiazem HCl (Cardizem -) 60 mg PO Q6HPO [facility] Last Admin: 06/06/17 06:12 Dose: 60 mg Docusate Sodium (Colace -) 100 mg PO TID [facility] Last Admin: 06/06/17 06:12 Dose: 100 mg Ezetimibe (Zetia -) 10 mg PO DAILY [facility] Last Admin: 06/05/17 09:18 Dose: 10 mg Enoxaparin Sodium (Lovenox -) 90 mg SQ BID [facility] Last Admin: 06/05/17 21:52 Dose: 90 mg Furosemide (Lasix Injection -) 20 mg IVPB DAILY [facility] Last Admin: 06/05/17 09:18 Dose: 20 mg Losartan Potassium (Cozaar -) 100 mg PO DAILY [facility] Last Admin: 06/05/17 09:17 Dose: 100 mg Tamsulosin HCl (Flomax -) 0.4 mg PO DAILY@0830 [facility] Last Admin: 06/05/17 08:16 Dose: 0.4 mg - Objective Vital Signs: Vital Signs Temperature 98.8 F 06/06/17 06:00 Pulse Rate 74 06/06/17 06:00 Respiratory Rate 20 06/06/17 06:00 Blood Pressure 166/73 06/06/17 06:00 O2 Sat by Pulse Oximetry (%) 97 06/05/17 21:00 Constitutional: Yes: No Distress Cardiovascular: Yes: Pulse Irregular Respiratory: Yes: Other (decreased breath sounds bilaterally) Gastrointestinal: Yes: Soft Edema: Yes Edema: LLE: 1+, RLE: 1+ Neurological: Yes: Alert, Oriented Labs: CBC, BMP 06/06/17 05:35 06/06/17 05:35 INR, PTT INR 1.58 (0.82-1.09) H 06/03/17 15:00 Laboratory Tests 06/03/17 06/04/17 06/05/17 20:30 05:45 05:35 WBC Hgb Plt Count Potassium Creatinine AST ALT Troponin I 0.08 H 0.08 H 0.08 H 06/06/17 06/06/17 05:35 05:35 WBC 6.7 Hgb 13.7 Plt Count 168 Potassium 3.7 Creatinine 1.2 AST 98 H D ALT 103 H Troponin I 0.07 H - ....Imaging EKG: Image Reviewed Assessment/Plan Chronic silicosis PHTN with right sided CHF New onset AF (CTA negative PE) Mild TnI elevation in setting of decompensated CHF, 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 sided CHF (doubt primary ND) REC: 1. Switch to Cardizem CD 240mg daily 2. D/C Lovenox-- switch to NOAC (will need to see which one is covered by insurance for outpatient use) 3. Lengthy discussion w/ patient about further diagnostic and therapeutic studies we recommend including: -DALI/DCCV -Consideration for Ablation -R/L heart cath for PA pressure assessment and coronary assessment. His is ill and depends on him for care, he wants to go home and will consider these options and f/u with us in office. He stated he would be amenable to further evalution as outpatient.
[2017-06-06] MEDS ORDERED: APIXABAN 5 MG TABLET PO SCH (10:00)
[2017-06-06] MEDS ORDERED: FUROSEMIDE 40 MG TABLET (FP) PO SCH (10:00)
[2017-06-06] MEDS: EZETIMIBE 10 MG TABLET (FP) PO SCH (10:06)
[2017-06-06] MEDS: LOSARTAN POTASSIUM 50 MG TABLET (FP) PO SCH (10:06)
[2017-06-06] MEDS: ASPIRIN 81 MG CHEWABLE TABLETS PO SCH (10:06)
[2017-06-06] MEDS: TAMSULOSIN HCL 0.4 MG CAP.ER.24H (FP) PO SCH (10:06)
[2017-06-06 15:20] VITALS: BP 126/80; TEMP 97.2
[2017-06-06 15:21] VITALS: PULSE 115
--- NOTE | 2017-06-06 21:41 | DS ---
Physical Examination Vital Signs: Vital Signs Temperature 97.2 F L 06/06/17 14:00 Pulse Rate 115 H 06/06/17 14:00 Respiratory Rate 20 06/06/17 09:00 Blood Pressure 126/80 06/06/17 14:00 O2 Sat by Pulse Oximetry (%) 97 06/06/17 09:00 Labs: CBC, BMP 06/06/17 05:35 06/06/17 05:35 Discharge Summary Reason For Visit: ELEVATED TROPONIN LEVEL Condition: Good - Instructions Referrals: Arnold Patel MD [Staff Physician] - (follow up on monday) Remy Schulz MD [Primary Care Provider] - Disposition: HOME - Home Medications Comprehensive Discharge Medication List: Ambulatory Orders Alfuzosin HCl [Uroxatral] 10 mg PO DAILY 06/03/17 Amlodipine Besylate 5 mg PO DAILY 06/03/17 Aspirin [ASA -] 81 mg PO DAILY 06/03/17 Ezetimibe 10 mg PO DAILY 06/03/17 Losartan Potassium 100 mg PO DAILY 06/03/17 Meloxicam [Mobic] 15 mg PO DAILY 06/03/17 Apixaban [Eliquis -] 5 mg PO BID #60 tablet 06/06/17 Diltiazem Cd [Cardizem Cd -] 240 mg PO DAILY #30 tab 06/06/17 Docusate Sodium [Colace -] 100 mg PO TID #30 tab 06/06/17 Furosemide [Lasix -] 40 mg PO DAILY tablet 06/06/17
[2017-06-07 08:12] LABS: FIBROSIS SCORE. 0.89 (0.00-0.21); HCV ALPHA 2 MACRO CHART 235 mg/dL (110-276); HCV APOLIPOPROTEIN A1 87 mg/dL (101-178); HCV GGT 80 IU/L (0-65); HCV HAPTOGLOBIN 76 mg/dL (34-200); HCV TBIL CHART 1.5 mg/dL (0.0-1.2); NECRO.INFLAM ACT.SCORE 0.84 (0.00-0.17); NECROINFLAM. ACTIVITY GRADE A3-Severe activity (.)
[2017-06-07 13:50] LABS: HCV FIBRO RESUL SEE FILE COPY
== END 2017-06-06 19:12 | disposition home or self-care (01) | DRG 308 ==
LOC: JER 14:06 → JERBED 15:55 → J4W 18:48
PROVIDERS: ADMIT Internal Medicine; ATTEND Internal Medicine
DX: I48.92 Unspecified atrial flutter (principal); I50.43 Acute on chronic combined systolic (congestive) and diastolic (congestive) heart failure; I24.8 Other forms of acute ischemic heart disease; I11.0 Hypertensive heart disease with heart failure; E78.5 Hyperlipidemia, unspecified; N40.0 Benign prostatic hyperplasia without lower urinary tract symptoms; R16.0 Hepatomegaly, not elsewhere classified; I27.2 Other secondary pulmonary hypertension; I34.0 Nonrheumatic mitral (valve) insufficiency; I36.1 Nonrheumatic tricuspid (valve) insufficiency; J62.8 Pneumoconiosis due to other dust containing silica
CPT/HCPCS: 36415; 71010-TC; 71275-TC; 74178-TC; 76705-TC; 80053; 80061; 82172; 82553; 82977; 83010; 83721; 83735; 83880; 83883; 84460; 84484; 85025; 85379; 85610; 85730; 87340; 90688; 93005; 93010; 93306-TC; 99285-25; G0008; Q9967

== ENCOUNTER 2020-08-26 17:09 | Inpatient (IN) | payer OTHER ==
[2020-08-26 18:12] LABS: BASO % 0.4 % (0-2.0); EOS % 0.5 % (0-4.5); HEMATOCRIT 38.3 % (35.4-49); HEMOGLOBIN 11.9 GM/dL (11.7-16.9); LYMPH % 8.3 % (8-40); MCH 25.7 pg (25.7-33.7); MCHC 31.2 g/dl (32.0-35.9); MEAN CELL VOLUME 82.5 fl (80-96); MONO % 13.8 % (3.8-10.2); PLATELET COUNT 223 K/MM3 (134-434); RBC 4.64 M/mm3 (4.00-5.60); RDW 13.9 % (11.9-15.9); WHITE BLOOD COUNT 7.7 K/mm3 (4.0-10.0)
[2020-08-26 18:30] LABS: POTASSIUM 4.8 mmol/L (3.5-5.1)
[2020-08-26 18:32] LABS: ALBUMIN 3.7 g/dl (3.4-5.0); BLOOD UREA NITROGEN 34.1 mg/dL (7-18); CALCIUM 9.2 mg/dL (8.5-10.1)
[2020-08-26] MEDS ORDERED: FUROSEMIDE 40 MG/4 ML INJECTABLE VIAL IVPUSH ONE (18:34)
[2020-08-26 18:35] LABS: CREATININE 2.1 mg/dL (0.55-1.3)
[2020-08-26 18:37] LABS: BILIRUBIN,TOTAL 0.8 mg/dL (0.2-1); TOT PROT 7.1 g/dl (6.4-8.2)
[2020-08-26 18:41] LABS: N-TERMINAL BNP 1195.6 pg/ml (5-450)
[2020-08-26 19:04] LABS: ERYTHROCYTE SEDIMENTATION RATE 3 mm/hr (0-20)
[2020-08-26] MEDS ORDERED: FUROSEMIDE 40 MG/4 ML INJECTABLE VIAL ONE (19:31)
[2020-08-26 19:48] LABS: INR 1.7 (0.83-1.09); PROTHROMBIN TIME (PATIENT) 20.6 SEC (9.7-13.0)
[2020-08-26 19:50] LABS: ACTIVATED PTT 34.5 SECONDS (25.2-36.5)
[2020-08-27 01:24] VITALS: BMI 30.5
[2020-08-27 02:13] LABS: URINE APPEARANCE CLEAR; URINE BILIRUBIN NEGATIVE (NEGATIVE); URINE COLOR YELLOW; URINE GLUCOSE (UA) NEGATIVE (NEGATIVE); URINE KETONE NEGATIVE (NEGATIVE); URINE LEUK ESTERASE NEGATIVE (NEGATIVE); URINE NITRITE NEGATIVE (NEGATIVE); URINE PROTEIN NEGATIVE (NEGATIVE); URINE UROBILINOGEN 0.2 mg/dL (0.2-1.0)
[2020-08-27] MEDS: DOCUSATE SODIUM 100 MG CAPSULE (FP) PO SCH ×3 (06:33→21:13)
[2020-08-27 08:21] LABS: BASO % 0.6 % (0-2.0); EOS % 1.5 % (0-4.5); HEMATOCRIT 37.4 % (35.4-49); HEMOGLOBIN 11.6 GM/dL (11.7-16.9); MCH 26.2 pg (25.7-33.7); MEAN CELL VOLUME 84.5 fl (80-96); MEAN PLT VOLUME 9.4 fl (7.5-11.1); NEUT % 60.9 % (42.8-82.8); PLATELET COUNT 191 K/MM3 (134-434); RBC 4.43 M/mm3 (4.00-5.60); WHITE BLOOD COUNT 7.3 K/mm3 (4.0-10.0)
[2020-08-27 08:35] LABS: POTASSIUM 4.2 mmol/L (3.5-5.1)
[2020-08-27 08:39] LABS: ALBUMIN 3.6 g/dl (3.4-5.0)
[2020-08-27 08:41] LABS: BLOOD UREA NITROGEN 29.7 mg/dL (7-18); CALCIUM 9.1 mg/dL (8.5-10.1)
[2020-08-27 08:46] LABS: CREATININE 1.8 mg/dL (0.55-1.3)
[2020-08-27] MEDS: APIXABAN 5 MG TABLET PO SCH ×2 (09:11→21:13)
[2020-08-27] MEDS: EZETIMIBE 10 MG TABLET (FP) PO SCH (09:11)
[2020-08-27] MEDS: amLODIPine BESYLATE 5 MG TABLET (FP) PO SCH (09:11)
[2020-08-27] MEDS: LOSARTAN POTASSIUM 50 MG TABLET PO SCH (09:11)
[2020-08-27] MEDS: FUROSEMIDE 40 MG/4 ML INJECTABLE VIAL IVPUSH SCH (09:11)
[2020-08-27] MEDS ORDERED: ASPIRIN 81 MG CHEWABLE TABLETS PO SCH (10:00)
[2020-08-27] MEDS ORDERED: PNEUMOC 13-VAL CONJ-DIP CRM/PF 0.5 ML DISP.SYRIN IM ONE (10:00)
[2020-08-27 21:59] LABS: POTASSIUM 4.5 mmol/L (3.5-5.1)
[2020-08-27 22:01] LABS: ALBUMIN 3.2 g/dl (3.4-5.0); BLOOD UREA NITROGEN 31.2 mg/dL (7-18); CALCIUM 8.8 mg/dL (8.5-10.1)
[2020-08-27 22:05] LABS: CREATININE 1.8 mg/dL (0.55-1.3)
[2020-08-27 22:07] LABS: BILIRUBIN,TOTAL 0.6 mg/dL (0.2-1); TOT PROT 6.5 g/dl (6.4-8.2)
[2020-08-27 22:54] LABS: EPI CELLS 7 /uL (0-25.1); HYALINE CASTS 1 /uL (0-3.1); PH,URINE 5.5 (5.0-8.0); URINE APPEARANCE CLEAR; URINE BACTERIA 4 /uL (0-1359); URINE BILIRUBIN NEGATIVE (NEGATIVE); URINE COLOR YELLOW; URINE GLUCOSE (UA) NEGATIVE (NEGATIVE); URINE KETONE NEGATIVE (NEGATIVE); URINE LEUK ESTERASE TRACE (NEGATIVE); URINE NITRITE NEGATIVE (NEGATIVE); URINE PROTEIN NEGATIVE (NEGATIVE); URINE WBC 26 /uL (0-25.8)
[2020-08-28 01:18] LABS: URINE RBC 2 /uL (0-23.9); YEAST PRESENT (NEGATIVE)
[2020-08-28] MEDS: DOCUSATE SODIUM 100 MG CAPSULE (FP) PO SCH ×3 (05:48→21:32)
[2020-08-28 08:18] LABS: BASO % 0.6 % (0-2.0); EOS % 1.7 % (0-4.5); HEMATOCRIT 39.8 % (35.4-49); HEMOGLOBIN 12.1 GM/dL (11.7-16.9); LYMPH % 20.5 % (8-40); MCH 25.3 pg (25.7-33.7); MCHC 30.3 g/dl (32.0-35.9); MEAN CELL VOLUME 83.4 fl (80-96); MEAN PLT VOLUME 9.3 fl (7.5-11.1); MONO % 16.8 % (3.8-10.2); NEUT % 60.4 % (42.8-82.8); PLATELET COUNT 204 K/MM3 (134-434); RBC 4.77 M/mm3 (4.00-5.60); RDW 13.7 % (11.9-15.9); WHITE BLOOD COUNT 7.2 K/mm3 (4.0-10.0)
[2020-08-28 08:19] LABS: POTASSIUM 4.6 mmol/L (3.5-5.1)
[2020-08-28 08:26] LABS: ALBUMIN 3.5 g/dl (3.4-5.0); BLOOD UREA NITROGEN 26.6 mg/dL (7-18)
[2020-08-28 08:29] LABS: CREATININE 1.5 mg/dL (0.55-1.3)
[2020-08-28 08:31] LABS: BILIRUBIN,TOTAL 1.1 mg/dL (0.2-1)
[2020-08-28] MEDS ORDERED: REGADENOSON 0.4 MG/5 ML PRE-FILLED SYRINGE IVPUSH ONE ×2 (11:03→11:15)
[2020-08-28] MEDS: LOSARTAN POTASSIUM 50 MG TABLET PO SCH (12:29)
[2020-08-28] MEDS: APIXABAN 5 MG TABLET PO SCH ×2 (12:29→21:32)
[2020-08-28] MEDS: amLODIPine BESYLATE 5 MG TABLET (FP) PO SCH (12:30)
[2020-08-28] MEDS: EZETIMIBE 10 MG TABLET (FP) PO SCH ×2 (12:30→12:33)
[2020-08-28] MEDS: FUROSEMIDE 40 MG/4 ML INJECTABLE VIAL IVPUSH SCH (12:30)
[2020-08-29] MEDS: DOCUSATE SODIUM 100 MG CAPSULE (FP) PO SCH ×3 (06:32→21:02)
[2020-08-29] MEDS: APIXABAN 5 MG TABLET PO SCH ×2 (09:34→21:02)
[2020-08-29] MEDS: amLODIPine BESYLATE 5 MG TABLET (FP) PO SCH (09:34)
[2020-08-29] MEDS: FUROSEMIDE 40 MG/4 ML INJECTABLE VIAL IVPUSH SCH (09:34)
[2020-08-29] MEDS: LOSARTAN POTASSIUM 50 MG TABLET PO SCH (09:34)
[2020-08-29] MEDS: EZETIMIBE 10 MG TABLET (FP) PO SCH (09:35)
[2020-08-29] MEDS: CARVEDILOL 3.125 MG TABLET (FP) PO SCH (21:02)
[2020-08-30] MEDS: DOCUSATE SODIUM 100 MG CAPSULE (FP) PO SCH ×3 (06:07→21:53)
[2020-08-30] MEDS: CARVEDILOL 3.125 MG TABLET (FP) PO SCH ×2 (09:46→21:53)
[2020-08-30] MEDS: EZETIMIBE 10 MG TABLET (FP) PO SCH (09:46)
[2020-08-30] MEDS: APIXABAN 5 MG TABLET PO SCH ×2 (09:46→21:53)
[2020-08-30] MEDS: amLODIPine BESYLATE 5 MG TABLET (FP) PO SCH (09:46)
[2020-08-30] MEDS: FUROSEMIDE 40 MG/4 ML INJECTABLE VIAL IVPUSH SCH (09:46)
[2020-08-30] MEDS: LOSARTAN POTASSIUM 50 MG TABLET PO SCH (09:46)
[2020-08-31] MEDS: DOCUSATE SODIUM 100 MG CAPSULE (FP) PO SCH (06:49)
[2020-08-31] MEDS ORDERED: FUROSEMIDE 40 MG TABLET (FP) PO SCH (10:00)
[2020-08-31] MEDS: APIXABAN 5 MG TABLET PO SCH (10:57)
[2020-08-31] MEDS: CARVEDILOL 3.125 MG TABLET (FP) PO SCH (10:57)
[2020-08-31] MEDS: LOSARTAN POTASSIUM 50 MG TABLET PO SCH (10:57)
[2020-08-31] MEDS: amLODIPine BESYLATE 5 MG TABLET (FP) PO SCH (10:58)
[2020-08-31] MEDS: EZETIMIBE 10 MG TABLET (FP) PO SCH (10:58)
[2020-08-31 13:57] VITALS: BP 124/62; PULSE 87; TEMP 98.4
== END 2020-08-31 14:59 | disposition home or self-care (01) | DRG 291 ==
LOC: JER 17:09 → JERBED 20:01 → J4W 08-27 01:04
PROVIDERS: ADMIT Internal Medicine; ATTEND Internal Medicine
DX: I13.0 Hypertensive heart and chronic kidney disease with heart failure and stage 1 through stage 4 chronic kidney disease, or unspecified chronic kidney disease (principal); I50.33 Acute on chronic diastolic (congestive) heart failure; N17.9 Acute kidney failure, unspecified; I48.92 Unspecified atrial flutter; E78.5 Hyperlipidemia, unspecified; I48.91 Unspecified atrial fibrillation; J44.9 Chronic obstructive pulmonary disease, unspecified; R74.8 Abnormal levels of other serum enzymes; N28.1 Cyst of kidney, acquired; J62.8 Pneumoconiosis due to other dust containing silica; N18.9 Chronic kidney disease, unspecified
CPT/HCPCS: 36415; 71045-TC-FY; 76705-TC; 76775-TC; 78452-TC; 80053; 80061; 81003; 82436; 82550; 82553; 82728; 83721; 83880; 84133; 84300; 84443; 84484; 85025; 85610; 85651; 85730; 90670; 93005; 93010; 93017; 93306-TC; 93970-TC; 99285-25; A9502; C9803; J2785; U0003

== ENCOUNTER 2021-04-12 12:49 | Inpatient (IN) | payer OTHER ==
[2021-04-12 14:40] LABS: BASO % 0.4 % (0-2.0); EOS % 0.2 % (0-4.5); HEMATOCRIT 39.8 % (35.4-49); HEMOGLOBIN 12.8 GM/dL (11.7-16.9); LYMPH % 10.4 % (8-40); MCH 25.4 pg (25.7-33.7); MCHC 32.2 g/dl (32.0-35.9); MEAN CELL VOLUME 78.8 fl (80-96); MEAN PLT VOLUME 8.9 fl (7.5-11.1); MONO % 14.9 % (3.8-10.2); NEUT % 74.1 % (42.8-82.8); PLATELET COUNT 199 10^3/uL (134-434); RBC 5.05 M/mm3 (4.00-5.60); RDW 17.5 % (11.9-15.9); WHITE BLOOD COUNT 5.2 K/mm3 (4.0-10.0)
[2021-04-12 14:47] LABS: INR 1.54 (0.83-1.09); PROTHROMBIN TIME (PATIENT) 18.7 SEC (9.7-13.0)
[2021-04-12 14:50] LABS: ACTIVATED PTT 25.6 SECONDS (25.2-36.5)
[2021-04-12 15:09] LABS: ALBUMIN 2.9 g/dl (3.4-5.0); CALCIUM 8.7 mg/dL (8.5-10.1)
[2021-04-12 15:10] LABS: BLOOD UREA NITROGEN 21.5 mg/dL (7-18)
[2021-04-12 15:12] LABS: CREATININE 1.4 mg/dL (0.55-1.3)
[2021-04-12 15:14] LABS: BILIRUBIN,TOTAL 2.7 mg/dL (0.2-1); TOT PROT 7.3 g/dl (6.4-8.2)
[2021-04-12 15:18] LABS: N-TERMINAL BNP 1152.6 pg/ml (5-450)
[2021-04-12 15:33] LABS: EPI CELLS 1 /uL (0-25.1); HYALINE CASTS 0 /uL (0-3.1); PH,URINE 7.5 (5.0-8.0); URINE APPEARANCE CLEAR; URINE BACTERIA 46 /uL (0-1359); URINE BILIRUBIN NEGATIVE (NEGATIVE); URINE COLOR RED; URINE GLUCOSE (UA) NEGATIVE (NEGATIVE); URINE KETONE NEGATIVE (NEGATIVE); URINE LEUK ESTERASE TRACE (NEGATIVE); URINE NITRITE NEGATIVE (NEGATIVE); URINE PROTEIN NEGATIVE (NEGATIVE); URINE RBC 8093 /uL (0-23.9); URINE WBC 42 /uL (0-25.8)
[2021-04-13] MEDS ORDERED: APIXABAN 5 MG TABLET ONE (05:23)
[2021-04-13] MEDS ORDERED: DOCUSATE SODIUM 100 MG CAPSULE (FP) PO ONE (05:24)
[2021-04-13] MEDS ORDERED: CARVEDILOL 3.125 MG TABLET (FP) ONE (05:24)
[2021-04-13] MEDS: DOCUSATE SODIUM 100 MG CAPSULE (FP) PO SCH ×3 (05:25→17:51)
[2021-04-13] MEDS: APIXABAN 5 MG TABLET PO SCH ×2 (05:25→09:27)
[2021-04-13] MEDS: CARVEDILOL 3.125 MG TABLET (FP) PO SCH ×2 (05:25→09:27)
[2021-04-13 06:27] VITALS: BMI 28.7
[2021-04-13 07:05] LABS: BASO % 0.8 % (0-2.0); EOS % 0.3 % (0-4.5); HEMATOCRIT 37.4 % (35.4-49); LYMPH % 12.4 % (8-40); MCH 26.6 pg (25.7-33.7); MCHC 32.1 g/dl (32.0-35.9); MEAN CELL VOLUME 82.9 fl (80-96); MEAN PLT VOLUME 8.6 fl (7.5-11.1); MONO % 19.3 % (3.8-10.2); NEUT % 67.2 % (42.8-82.8); PLATELET COUNT 166 10^3/uL (134-434); RBC 4.51 M/mm3 (4.00-5.60); RDW 17.8 % (11.9-15.9); WHITE BLOOD COUNT 6.6 K/mm3 (4.0-10.0)
[2021-04-13] MEDS ORDERED: PT OWN MED DRAWER 7, Y5N ONE ×2 (07:31→15:53)
[2021-04-13 07:40] LABS: CALCIUM 8.7 mg/dL (8.5-10.1)
[2021-04-13 07:41] LABS: ALBUMIN 2.8 g/dl (3.4-5.0); BLOOD UREA NITROGEN 23.1 mg/dL (7-18)
[2021-04-13 07:44] LABS: CREATININE 1.3 mg/dL (0.55-1.3)
[2021-04-13 07:45] LABS: BILIRUBIN,TOTAL 2.4 mg/dL (0.2-1); TOT PROT 6.8 g/dl (6.4-8.2)
[2021-04-13] MEDS ORDERED: TAMSULOSIN HCL 0.4 MG CAP PO SCH (08:30)
[2021-04-13 09:08] LABS: ANISOCYTOSIS 0; MACROCYTOSIS 0; PLATELET ESTIMATE NORMAL
[2021-04-13 09:38] VITALS: TEMP 98
[2021-04-13] MEDS ORDERED: ASPIRIN 81 MG CHEWABLE TABLETS PO SCH (10:00)
[2021-04-13] MEDS ORDERED: LOSARTAN POTASSIUM 50 MG TABLET PO SCH (10:00)
[2021-04-13] MEDS ORDERED: FUROSEMIDE 40 MG TABLET (FP) PO SCH (10:00)
[2021-04-13] MEDS ORDERED: amLODIPine BESYLATE 5 MG TABLET (FP) PO SCH (10:00)
[2021-04-13] MEDS ORDERED: FUROSEMIDE 40 MG/4 ML INJECTABLE VIAL IVPUSH SCH ×2 (10:00→15:32)
[2021-04-13 21:55] VITALS: BP 109/70; PULSE 88
[2021-04-13] MEDS ORDERED: SACUBITRIL/VALSARTAN 24 MG-26 MG TABLET PO SCH (22:00)
== END 2021-04-13 21:50 | disposition short-term general hospital (02) | DRG 291 ==
LOC: JER 12:49 → JERBED 18:04 → J2W 04-13 05:57
PROVIDERS: ADMIT Internal Medicine; ATTEND Internal Medicine
DX: I13.0 Hypertensive heart and chronic kidney disease with heart failure and stage 1 through stage 4 chronic kidney disease, or unspecified chronic kidney disease (principal); I50.23 Acute on chronic systolic (congestive) heart failure; I24.8 Other forms of acute ischemic heart disease; N50.89 Other specified disorders of the male genital organs; N18.9 Chronic kidney disease, unspecified; J62.8 Pneumoconiosis due to other dust containing silica; E78.5 Hyperlipidemia, unspecified; N40.1 Benign prostatic hyperplasia with lower urinary tract symptoms; I48.91 Unspecified atrial fibrillation; R31.9 Hematuria, unspecified
CPT/HCPCS: 36415; 71045-TC-FY; 76870-TC; 80053; 81003; 82550; 82553; 83880; 84484; 85025; 85610; 85730; 87086; 93005; 93010; 93306-TC; 99285-25; C9803; U0003; U0005